=== PATIENT | male | born 1965 | race Caucasian/White ===

== ENCOUNTER 2020-03-15 13:24 | Emergency (ER) | payer OTHER, SELFPAY ==
[2020-03-15 13:30] VITALS: BP 171/103; PULSE 99; RESP 18; TEMP 36.9; O2SAT 95; BMI 50.2
--- NOTE | 2020-03-15 13:49 | HMH.EDUTC ---
[facility] [place] Impression: UTI (urinary tract infection) Qualifiers: Urinary tract infection type: site unspecified Hematuria presence: without hematuria Qualified Code(s): N39.0 - Urinary tract infection, site not specified Disposition: Home, Self-Care Condition on Discharge: Good Instructions: Urinary Tract Infection, DI for Urinary Tract Infection (UTI) Additional Instructions: Drink plenty of fluids. Take tylenol or ibuprofen for pain or fever. Take the medications as directed. Follow up with your regular doctor. GO TO THE ER FOR ANY WORSENING SYMPTOMS Prescriptions: Ciprofloxacin HCl [Ciprofloxacin 500mg Tab] 500 mg PO BID 14 Days #28 tab Transmission Status: Received by [facility] Referrals: Angeles Ribeiro APRN [Primary Care Provider] - Forms: Work/School Release Time of Disposition: 14:14 Medical Decision Making - Medical Records Medical records reviewed: No: I reviewed the patient's medical records. - Brenton Inquiry Pt receiving controlled substance: No Vital Signs: 03/15/20 13:30 03/15/20 14:23 Temperature 98.4 F 98.4 F Temperature Source Oral Pulse Rate 99 H Pulse Rate [Right Brachial] 99 H Respiratory Rate 18 18 Blood Pressure 171/103 H Blood Pressure [Right Arm] 171/103 H Blood Pressure Mean [Right Arm] 125 Blood Pressure Source [Right Arm] Automatic Cuff Blood Pressure Position [Right Arm] Sitting 02 Sat by Pulse Oximetry 95 Oxygen Delivery Method Room Air - Lab Data Lab results reviewed: Yes: I reviewed the patient's lab results. Lab Results 03/15/20 14:12: Urine Color Yellow, Urine Appearance Clear, Urine pH 5.0, Ur Specific [place] 1.025, Urine Protein Negative, Urine Glucose (UA) >=1000, Urine Ketones Trace, Urine Blood Negative, Urine Nitrate Negative, Urine Bilirubin Negative, Urine Urobilinogen 0.2, Ur Leukocyte Esterase Negative Orders (Tests/Meds): ED MEDICATIONS Discontinued Medications Generic Name Dose Route Start Last Admin Trade Name Freq PRN Reason Stop Dose Admin Levofloxacin 500 mg 03/15/20 14:14 03/15/20 14:20 Levofloxacin 500mg Tab PO 03/15/20 14:15 500 mg ONCE ONE Administration Protocol ORDERS Category Date Time Status Urine Culture Stat Micro 03/15/20 13:50 [place] [facility] [place] - General Stated complaint: Kidney issues Time Seen by Provider: 03/15/20 13:49 - History of Present Illness Provider Complaint: He states that for the past 3 days he has been having burning after he urinates. He has to hold his urine for kind of long periods of time at times due to his job. He thinks that he either has a uti or a prostate infection due to holding his urine for a long time last week. He denies any fever or chills. He does have some low back pain at times. - Related Data Previous Rx's Medication Instructions Recorded Ciprofloxacin HCl [Ciprofloxacin 500 mg PO BID 14 Days #28 tab 03/15/20 500mg Tab] Allergies Allergy/AdvReac Type Severity Reaction Status Date / Time No Known Allergies Allergy Verified 03/15/20 14:12 [facility] History - Hepatitis A Screen Attestation statement:: This patient has been screened for Hepatitis A risk factors. I have reviewed the patient's past medical history: Yes ROS Obtained: Yes All systems reviewed & no additional complaints - Constitutional Constitutional: Denies chills, Denies fever(s), Reports poor appetite, Reports malaise - Eyes Eyes: Denies eye discharge - Genitourinary Male Genitourinary: Reports as per HPI - Musculoskeletal Musculoskeletal: Reports back pain - Integumentary/Breasts Skin/Breast: Denies redness, Denies rash, Denies wounds Physical Exam - General General appearance: alert, in no apparent distress - Head Head exam: atraumatic, normocephalic, normal inspection - Eye Eye exam: Present: normal appearance, PERRL, EOMI - ENT ENT exam: Present: normal exam, normal oropharynx, mucous membr
[2020-03-15 14:23] VITALS: BP 171/103; PULSE 99; RESP 18; TEMP 36.9; O2SAT 95
[2020-03-15 20:06] LABS: Apearance,Urine Clear (Clear); Color,Urine Yellow (Yellow); Glucose,Urine (UA) >=1000 (Negative); Protein,Urine Negative (Negative); Specific Gravity, Urine 1.025 (1.005-1.030)
[2020-03-15 20:07] LABS: Bilirubin,Urine Negative (Negative); Blood, Urine Negative (Negative); Ketones,Urine TRACE (Negative); UTC Leukocyte Esterase,Urine Negative (Negative); UTC Nitrate,Urine Negative (Negative); Urobilinogen,Urine 0.2 EU/dl (0.2)
== END 2020-03-15 14:25 | disposition home or self-care (01) ==
PROVIDERS: Emergency Provider Nurse Practitioner Family; PCP Nurse Practitioner
DX: N30.00 Acute cystitis without hematuria (principal)
CPT/HCPCS: 81003; 87086; 99202; G0463

== ENCOUNTER 2020-03-18 08:50 | Emergency (ER) | payer OTHER, SELFPAY ==
[2020-03-18 08:52] VITALS: BP 154/88; PULSE 89; RESP 18; TEMP 36.8; O2SAT 97; BMI 3002.9
--- NOTE | 2020-03-18 08:56 | HMH.EDGENADL ---
ED Disposition Clinical Impression: Dysuria, Prostatic hypertrophy Disposition: Home, Self-Care Condition on Discharge: Good Instructions: DI for Urinary Tract Infection (UTI), DI for Urinary Tract Infection in Children Additional Instructions: Continue Cipro, take it until finished. Flomax and Pyridium as prescribed. Follow up with Dr. Ledesma, call for appointment. Prescriptions: Tamsulosin HCl [Flomax 0.4mg capsule] 0.4 mg PO HS #10 cap.er.24h Transmission Status: Received by [facility] Phenazopyridine HCl [Pyridium 200mg Tablet] 200 pow PO TID #6 tab Transmission Status: Received by [facility] Referrals: Angeles Ribeiro APRN [Primary Care Provider] - Mayo Ledesma MD [Staff Physician] - Forms: Work/School Release - Critical Care Critical Care Time: No Attestation: On , the high probability of a clinically significant, sudden or life threatening deterioration of the following system(s) required my full and direct attention, intervention and personal management. The time I documented below is in addition to time spent performing reported procedures but includes the following listed in this critical care notation. Medical Decision Making - Medical Records Medical records reviewed: Yes: I reviewed the patient's medical records. MR Comment: Reviewed urgent treatment center visit. Diagnosed with UTI. Urine analysis unremarkable except for glucose. Urine culture shows multiple organisms, probable contamination. - Brenton Inquiry Pt receiving controlled substance: No Vital Signs: 03/18/20 08:52 03/18/20 10:43 Temperature 98.2 F 98.4 F Temperature Source Oral Oral Pulse Rate 77 Pulse Rate [Left Radial] 89 Respiratory Rate 18 16 Blood Pressure 129/70 Blood Pressure [Left Arm] 154/88 H Blood Pressure Mean [Left Arm] 110 Blood Pressure Source Automatic Cuff Blood Pressure Source [Left Arm] Manual Cuff/ Doppler Blood Pressure Position Sitting Blood Pressure Position [Left Arm] Sitting 02 Sat by Pulse Oximetry 97 Oxygen Delivery Method Room Air Room Air - Lab Data Lab results reviewed: Yes: I reviewed the patient's lab results. Lab Results 03/18/20 09:09: Urine Color Yellow, Urine Appearance Clear, Urine pH 6.0, Ur Specific [place] 1.025, Urine Protein Negative, Urine Glucose (UA) 3+, Urine Ketones Negative, Urine Blood Negative, Urine Nitrate Negative, Urine Bilirubin Negative, Urine Urobilinogen 0.2, Ur Leukocyte Esterase Negative, Urine WBC 3-5, Ur Squamous Epith Cells 3-5 03/18/20 09:09: WBC 9.0, RBC 5.81, Hgb 17.1, Hct 52.4 H, MCV 90.3, MCH 29.5, MCHC 32.7, RDW 14.1, Plt Count 263, MPV 8.2, Neut % (Auto) 74.9, Lymph % (Auto) 15.4, [place] % (Auto) 5.2, Eos % (Auto) 4.1, Baso % (Auto) 0.5, Neut # (Auto) 6.8, Lymph # (Auto) 1.4, [place] # (Auto) 0.5, Eos # (Auto) 0.4, Baso # (Auto) 0.0 03/18/20 09:09: Sodium 139, Potassium 4.4, Chloride 103, Carbon Dioxide 28, Anion Gap 12.4, BUN 12, Creatinine 0.70, Estimated Creat Clear -116 L, Estimated GFR 118, Est GFR ( Amer) 143, Glucose 192 H, Calcium 10.2, Total Bilirubin 0.4, AST 22, ALT 21, Alkaline Phosphatase 96, Total Protein 8.7 H, Albumin 4.8, Globulin 3.9 H, Albumin/Globulin Ratio 1.2 Result diagrams: 03/18/20 09:09 03/18/20 09:09 - CT Data CT Scan: Abdomen, Pelvis Time Received: 10:[address] Reviewed: Yes: I have viewed the radiologist's interpretation Findings Narrative: PROCEDURE: CT ABDOMEN PELVIS WO CON CLINICAL INDICATION: urinary difficulty, r/o stone Pain when urinating COMPARISON: No exams were available for comparison TECHNIQUE: Axial images obtained with sagittal and coronal reformats. All CT scans at the facility use one or more dose reduction, viz: automated exposure control, ma/kV adjustment per patient size (including targeted exams where dose is matched to indication, i.e. head), or iterative reconstruction technique. FINDINGS: LOWER THORAX: No acute finding ABDOMEN & PEL
--- NOTE | 2020-03-18 09:15 | CT_ITS ---
PROCEDURE: CT ABDOMEN PELVIS WO CON CLINICAL INDICATION: urinary difficulty, r/o stone Pain when urinating COMPARISON: No exams were available for comparison TECHNIQUE: Axial images obtained with sagittal and coronal reformats. All CT scans at the facility use one or more dose reduction, viz: automated exposure control, ma/kV adjustment per patient size (including targeted exams where dose is matched to indication, i.e. head), or iterative reconstruction technique. FINDINGS: LOWER THORAX: No acute finding ABDOMEN & PELVIS: There is a small hiatal hernia. Mild nonspecific thickening noted of distal esophagus and GE junction with small amount of fluid in the distal esophagus. The liver, gallbladder, spleen, adrenal glands, and pancreas have unremarkable appearance. No renal or ureteral calculi are evident. No hydronephrosis. There is a mild amount of retained colonic feces. There is reported history of prior appendectomy. No intestinal obstruction or free air. There are few colonic diverticula but no evidence of diverticulitis. The prostate is enlarged at 6 x 4.8 cm. There is thickening of the urinary bladder nonspecific. No acute bony findings. IMPRESSION: 1. No acute finding. 2. Enlarged prostate. There is mild urinary bladder wall thickening which may be seen with incomplete distension, chronic outflow obstruction, or cystitis. 3. Hiatal hernia with mildly thickened distal esophagus Dictated by: Jimmie Mckeon MD 03/18/2020 10:05 Jimmie Mckeon MD in [place] 03/18/2020 10:05
[2020-03-18 09:58] LABS: Microscopic, Urine URINE MICROSCOPIC (MICROSCOPIC)
[2020-03-18 10:01] LABS: Appearance,Urine CLEAR (Clear); Bilirubin,Urine Negative (Negative); Blood, Urine Negative (Negative); Color,Urine YELLOW (Yellow); Glucose,Urine (UA) 3+ (Negative); Ketones,Urine Negative (Negative); Leukocyte Esterase,Urine Negative (Negative); Nitrate,Urine Negative (Negative); Protein,Urine Negative (Negative); Specific Gravity, Urine 1.025 (1.005-1.030); Urobilinogen,Urine 0.2 EU/dl (0.2)
[2020-03-18 10:03] LABS: Basophils % 0.5 % (0.1-2.0); Eosinophils # 0.4 K/mm3 (0.0-0.4); Eosinophils % 4.1 % (0.1-12.0); Hematocrit 52.4 % (42.0-52.0); Hemoglobin 17.1 g/dL (14.1-18.0); Lymphocytes # 1.4 K/mm3 (0.7-4.5); Lymphocytes % 15.4 % (10-50); Mean Corpuscular HGB Conc 32.7 g/dL (31.8-35.4); Mean Corpuscular Hemoglobin 29.5 pg (27.0-31.2); Mean Corpuscular Volume 90.3 fl (80-94); Mean Platelet Volume 8.2 fl (7.4-10.4); Monocytes # 0.5 K/mm3 (0.1-1.0); Monocytes % 5.2 % (1.7-9.3); Neutrophils # 6.8 K/mm3 (1.8-7.8); Neutrophils % 74.9 % (37.0-80.0); Platelet Count 263 K/mm3 (142-424); Red Blood Count 5.81 M/mm3 (4.60-6.20); Red Cell Distribution Width 14.1 % (11.5-17.5)
[2020-03-18 10:12] LABS: Chloride 103 mmol/L (98-107); Sodium 139 mmol/L (136-145)
[2020-03-18 10:13] LABS: Potassium 4.4 mmoL/L (3.5-5.1)
[2020-03-18 10:15] LABS: Alanine Aminotransferase 21 U/L (12-78); Albumin Level 4.8 g/dl (3.5-5.0); Albumin/Globulin Ratio 1.2 (1.1-1.8); Alkaline Phosphatase 96 U/L (38-126); Anion Gap 12.4 mEq/L (5-15); Aspartate Amino Transferase 22 U/L (17-59); Bilirubin,Total 0.4 mg/dl (0.2-1.3); Blood Urea Nitrogen 12 mg/dl (9-20); Carbon Dioxide 28 mmol/L (22.0-30.0); Estimated Glomerular Filt Rate 118 ml/min (>60); GFR (African American) 143 ML/MIN (>60); Globulin 3.9 g/dL (1.3-3.2); Total Protein,Serum 8.7 g/dl (6.3-8.2)
[2020-03-18 10:16] LABS: Calcium 10.2 mg/dl (8.4-10.2); Glucose 192 mg/dl (74-100)
[2020-03-18 10:43] VITALS: BP 129/70; PULSE 77; RESP 16; TEMP 36.9; O2SAT 98
[2020-03-21 04:20] LABS: Neisseria gonorrhoeae, NAA Negative (Negative)
== END 2020-03-18 10:45 | disposition home or self-care (01) ==
PROVIDERS: Emergency Provider Emergency Medicine; PCP Nurse Practitioner
DX: R30.0 Dysuria (principal); N40.1 Benign prostatic hyperplasia with lower urinary tract symptoms; E11.9 Type 2 diabetes mellitus without complications
CPT/HCPCS: 74176; 80053; 81001; 85025; 87491; 87591; 99283

== ENCOUNTER → 2021-09-02 14:02 | Outpatient (CLI) | payer OTHER, SELFPAY ==
[2021-09-02 13:17] LABS: Chloride 102 mmol/L (98-107); Potassium 4.9 mmoL/L (3.5-5.1); Sodium 135 mmol/L (136-145)
[2021-09-02 13:20] LABS: Anion Gap 10.9 mEq/L (5-15); Blood Urea Nitrogen 9 mg/dl (9-20); Calcium 9.8 mg/dl (8.4-10.2); Carbon Dioxide 27 mmol/L (22.0-30.0); Estimated Glomerular Filt Rate 140 ml/min (>60); GFR (African American) 170 ML/MIN (>60); Glucose 191 mg/dl (74-100)
== END ==
LOC: LAB.DROPOF 14:03
PROVIDERS: PCP Family Medicine; Visit Provider Family Medicine
DX: E11.9 Type 2 diabetes mellitus without complications (principal); Z79.84 Long term (current) use of oral hypoglycemic drugs
CPT/HCPCS: 80048

== ENCOUNTER → 2022-06-08 09:23 | Outpatient (CLI) | payer SELFPAY ==
[2022-06-08 18:36] LABS: Basophils # 0.1 K/mm3 (0-0.2); Basophils % 0.8 % (0.1-2.0); Eosinophils # 0.4 K/mm3 (0.0-0.4); Eosinophils % 4.5 % (0.1-12.0); Hematocrit 50.2 % (42.0-52.0); Hemoglobin 16.3 g/dL (14.1-18.0); Lymphocytes # 1.6 K/mm3 (0.7-4.5); Mean Corpuscular HGB Conc 32.6 g/dL (31.8-35.4); Mean Corpuscular Hemoglobin 29.1 pg (27.0-31.2); Mean Corpuscular Volume 89.4 fl (80-94); Mean Platelet Volume 9.2 fl (7.4-10.4); Monocytes # 0.5 K/mm3 (0.1-1.0); Monocytes % 5.6 % (1.7-9.3); Neutrophils # 6.6 K/mm3 (1.8-7.8); Platelet Count 254 K/mm3 (142-424); Red Blood Count 5.61 M/mm3 (4.60-6.20); Red Cell Distribution Width 13.5 % (11.5-17.5); White Blood Count 9.2 K/mm3 (4.8-10.8)
[2022-06-08 19:07] LABS: Alanine Aminotransferase 21 U/L (12-78); Albumin Level 4.2 g/dl (3.5-5.0); Albumin/Globulin Ratio 1.4 (1.1-1.8); Alkaline Phosphatase 105 U/L (38-126); Aspartate Amino Transferase 25 U/L (17-59); Bilirubin,Total 0.5 mg/dl (0.2-1.3); Blood Urea Nitrogen 10 mg/dl (9-20); Carbon Dioxide 24 mmol/L (22.0-30.0); Chloride 103 mmol/L (98-107); Chol/HDL Ratio 4.7 (1-3.5); Cholesterol 188 mg/dl (140-200); Estimated Glomerular Filt Rate 117 ml/min (>60); GFR (African American) 142 ML/MIN (>60); Globulin 2.9 g/dL (1.3-3.2); Glucose 114 mg/dl (74-100); HDL Cholesterol 40 mg/dl (40-60); Sodium 137 mmol/L (136-145); Total Protein,Serum 7.1 g/dl (6.3-8.2); Triglycerides 139 mg/dl (30-150); VLDL Cholesterol 28 mg/dL (0-40)
[2022-06-08 19:18] LABS: Direct LDL Cholesterol 119.69 mg/dL (100-129)
[2022-06-08 19:37] LABS: Thyroid Stimulating Hormone 1.69 uIU/mL (0.465-4.68)
[2022-06-08 19:52] LABS: Microalbumin < 6.000 mg/L (0-16.7)
[2022-06-08 20:02] LABS: Creatinine,Urine Random 76 mg/dL (Not Estab.)
== END ==
LOC: LAB.DROPOF 06-09 06:08
PROVIDERS: PCP Family Medicine; Visit Provider Family Medicine
DX: E11.9 Type 2 diabetes mellitus without complications (principal); I10 Essential (primary) hypertension; Z79.84 Long term (current) use of oral hypoglycemic drugs
CPT/HCPCS: 80053; 80061; 82043; 82570; 84443; 85025

== ENCOUNTER 2022-07-26 18:36 | Emergency (ER) | payer OTHER, SELFPAY ==
[2022-07-26 18:38] VITALS: BP 135/87; PULSE 106; RESP 19; TEMP 37.2; O2SAT 94; BMI 45.9
--- NOTE | 2022-07-26 20:29 | HMH.EDSKAF ---
Discharge Plan Disposition Patient Disposition: Home, Self-Care Prescriptions Prescriptions: New minocycline 100 mg Capsule 100 mg PO BID Qty: 20 0RF cephalexin [cephalexin] 500 mg capsule 500 mg PO TID Qty: 30 0RF No Action omeprazole 40 mg capsule,delayed release(DR/EC) 40 mg PO DAILY Qty: 30 2RF Synjardy XR 12.5-1,000 mg tablet, IR - ER, biphasic 24hr 1 tab PO DAILY Qty: 30 1RF Ozempic 1 mg/dose (4 mg/3 mL) pen injector 2 mg SQ WEEKLY Qty: 3 5RF atenolol 25 mg tablet 25 mg PO DAILY Qty: 90 1RF lisinopril 20 mg tablet 20 mg PO DAILY Qty: 90 1RF Referrals Follow up/Referrals: Ash Beebe MD [Primary Care Provider] - See instructions Clinical Impressions Clinical Impression: Cellulitis Instructions Patient Instructions: Cellulitis Discharge ED Provider: Kaushik (ED),Kalin Mak Skin/Abscess/FB HPI General Chief complaint: Skin/Abscess/Foreign Body Stated complaint: knot below stomach, painful Time Seen by Provider: 07/26/22 20:29 Mode of Arrival: Ambulatory Source of Information: Patient and Medical Record Limitations: No Limitations Description of Symptoms (Recalled from ER Triage Doc. by RN): 56 yo M presents to ED with c/o boil like spot on pubic area. pt reports that since monday he felt a spot on his pubic area but was unsure of what it was. today pt states that he and his attemped to drain the spot but were unsuccessful. History of Present Illness HPI narrative: over the last few days has area that was draining and has reddness and tender - pt is diabetic - no fever or chills complaint: abscess/boil Onset (ago): day(s) Location: genitals (suprapubic infection) Severity: moderate Associated symptoms: denies other symptoms Related Data Previous Rx's Medication Instructions Recorded empagliflozin 12.5 mg-metformin ER 1 tab PO DAILY #30 ea 11/29/21 1,000 mg tablet,extended rel 24 hr (Synjardy XR) semaglutide 1 mg/dose (4 mg/3 mL) 2 mg (1.5 mL) SQ WEEKLY #3 mL 04/06/22 subcutaneous pen injector (Ozempic) atenolol 25 mg tablet 25 mg PO DAILY #90 tabs 05/04/22 lisinopril 20 mg tablet 20 mg PO DAILY #90 tabs 05/04/22 omeprazole 40 mg capsule,delayed 40 mg PO DAILY #30 caps 06/08/22 release cephalexin 500 mg capsule 500 mg PO TID #30 caps 07/26/22 minocycline 100 mg capsule 100 mg PO BID #20 caps 07/26/22 Allergies Allergy/AdvReac Type Severity Reaction Status Date / Time No Known Allergies Allergy Verified 06/08/22 09:25 [facility] Disclaimer: The information contained in this section may have been updated after the patient was seen, as this information can be updated by other users. Medical History Diabetes mellitus HTN (hypertension) Morbid obesity Prostatic hypertrophy Family History Other Cancer Social History Smoking Status: Never smoker alcohol intake: never current occupational status: employed Travel in the last 8 weeks: Inside the [facility] ([place]) ROS Obtained: Yes All systems reviewed & no additional complaints except as documented Physical Exam General General appearance: alert Head Head exam: normocephalic Eye Eye exam: Present PERRL and EOMI ENT ENT exam: Present mucous membranes moist Neck Neck exam: Absent trachea midline Respiratory Respiratory exam: Absent respiratory distress Cardiovascular Cardiovascular exam: Present regular rate Abdominal Exam Abdominal exam: Present soft Extremities Exam Extremities exam: Present full ROM Neurological Exam Neurological exam: Present alert and CN II-XII intact Skin Skin exam: Present rash and other (reddness and area of infection w/o abscess or drainage - scrotal area nl ) Lymphatic Lymphatic Findings: no adenopathy Medical Decision Making Brenton Inquiry Pt receivi
[2022-07-26 20:43] VITALS: BP 119/78; PULSE 91; RESP 16; TEMP 36.9; O2SAT 94
== END 2022-07-26 20:45 | disposition home or self-care (01) ==
PROVIDERS: Emergency Provider Emergency Medicine; PCP Family Medicine
DX: L03.314 Cellulitis of groin (principal); E11.9 Type 2 diabetes mellitus without complications; E66.01 Morbid (severe) obesity due to excess calories; I10 Essential (primary) hypertension; N40.0 Benign prostatic hyperplasia without lower urinary tract symptoms
CPT/HCPCS: 99283; 99284

== ENCOUNTER 2023-12-11 09:30 | Outpatient (CLI) | payer MEDICARE, SELFPAY ==
[2023-12-11 18:40] LABS: Albumin Level 4.2 g/dl (3.5-5.0); Chloride 103 mmol/L (98-107); Potassium 4.5 mmoL/L (3.5-5.1); Sodium 136 mmol/L (136-145)
[2023-12-11 18:43] LABS: Alanine Aminotransferase 42 U/L (12-78); Albumin/Globulin Ratio 1.4 (1.1-1.8); Alkaline Phosphatase 101 U/L (38-126); Anion Gap 15.5 mEq/L (5-15); Aspartate Amino Transferase 36 U/L (17-59); Bilirubin,Total 0.7 mg/dl (0.2-1.3); Blood Urea Nitrogen 11 mg/dl (9-20); Carbon Dioxide 22 mmol/L (22.0-30.0); Cholesterol 198 mg/dl (140-200); Estimated Glomerular Filt Rate 139 ml/min (>60); GFR (African American) 168 ML/MIN (>60); Globulin 2.9 g/dL (1.3-3.2); Total Protein,Serum 7.1 g/dl (6.3-8.2); Triglycerides 165 mg/dl (30-150); VLDL Cholesterol 33 mg/dL (0-40)
[2023-12-11 18:44] LABS: Calcium 9.1 mg/dl (8.4-10.2); Chol/HDL Ratio 4.5 (1-3.5); Glucose 204 mg/dl (74-100); HDL Cholesterol 44 mg/dl (40-60)
[2023-12-11 18:55] LABS: Direct LDL Cholesterol 123.31 mg/dL (100-129)
[2023-12-11 19:35] LABS: Vitamin B12 453 pg/mL (239-931)
[2023-12-11 19:41] LABS: HIV (1&2) Antibody Rapid NONREACTIVE (NONREACTIVE)
[2023-12-11 19:54] LABS: Prostate Specific Ag Screen 2.9 ng/ml (0.0-4.0); Thyroid Stimulating Hormone 2.41 uIU/mL (0.465-4.68)
[2023-12-11 21:47] LABS: Creatinine,Urine Random 49 mg/dL (Not Estab.)
[2023-12-11 22:01] LABS: Microalbumin < 6.000 mg/L (0-16.7)
[2023-12-13 08:25] LABS: HCV Ab Non Reactive (Non Reactive)
== END 2023-12-11 23:59 | disposition home or self-care (01) ==
LOC: LAB.DROPOF 12-12 13:00
PROVIDERS: PCP Nurse Practitioner; Visit Provider Nurse Practitioner
DX: Z12.5 Encounter for screening for malignant neoplasm of prostate (principal); Z11.9 Encounter for screening for infectious and parasitic diseases, unspecified; I10 Essential (primary) hypertension; E11.9 Type 2 diabetes mellitus without complications; Z79.85 Long-term (current) use of injectable non-insulin antidiabetic drugs; N40.0 Benign prostatic hyperplasia without lower urinary tract symptoms; E78.5 Hyperlipidemia, unspecified; Z68.43 Body mass index [BMI] 50.0-59.9, adult; E66.01 Morbid (severe) obesity due to excess calories
CPT/HCPCS: 80053; 80061; 82043; 82570; 82607; 83036; 84443; 86803; 87389; G0103

== ENCOUNTER 2024-06-03 08:56 | Outpatient (CLI) | payer MEDICARE, SELFPAY ==
[2024-06-03 19:37] LABS: Basophils # 0.1 K/mm3 (0-0.2); Basophils % 0.6 % (0.1-2.0); Eosinophils # 0.4 Kmm3 (0.0-0.4); Eosinophils % 4.5 % (0.1-12.0); Hematocrit 49.6 % (42.0-52.0); Hemoglobin 15.8 g/dL (14.1-18.0); Lymphocytes # 1.5 K/mm3 (0.7-4.5); Lymphocytes % 17.1 % (10-50); Mean Corpuscular HGB Conc 31.9 g/dL (31.8-35.4); Mean Corpuscular Hemoglobin 29.5 pg (27.0-31.2); Mean Corpuscular Volume 92.7 fl (80-94); Mean Platelet Volume 10.3 fl (7.4-10.4); Monocytes # 0.7 K/mm3 (0.1-1.0); Monocytes % 8.1 % (1.7-9.3); Neutrophils % 69.2 % (37.0-80.0); Nucleated Red Blood Cells # 0 10^3/uL; Nucleated Red Blood Cells % 0 %; Platelet Count 238 K/mm3 (142-424); Red Blood Count 5.35 M/mm3 (4.60-6.20); Red Cell Distribution Width 13.3 % (11.5-17.5); Red Cell Distribution Width-SD 45.3 fL; White Blood Count 8.7 K/mm3 (4.8-10.8)
[2024-06-03 19:41] LABS: Creatinine,Urine Random 71 mg/dL (Not Estab.)
[2024-06-03 20:17] LABS: Albumin Level 4.3 g/dl (3.5-5.0); Chloride 105 mmol/L (98-107); Potassium 4.8 mmoL/L (3.5-5.1); Sodium 137 mmol/L (136-145)
[2024-06-03 20:19] LABS: Alanine Aminotransferase 25 U/L (12-78); Anion Gap 15.8 mEq/L (5-15); Aspartate Amino Transferase 23 U/L (17-59); Blood Urea Nitrogen 15 mg/dl (9-20); Carbon Dioxide 21 mmol/L (22.0-30.0); Estimated Glomerular Filt Rate 116 ml/min (>60); GFR (African American) 141 ML/MIN (>60)
[2024-06-03 20:20] LABS: Albumin/Globulin Ratio 1.5 (1.1-1.8); Alkaline Phosphatase 91 U/L (38-126); Bilirubin,Total 0.5 mg/dl (0.2-1.3); Calcium 9.5 mg/dl (8.4-10.2); Chol/HDL Ratio 4.1 (1-3.5); Cholesterol 171 mg/dl (140-200); Globulin 2.9 g/dL (1.3-3.2); Glucose 116 mg/dl (74-100); HDL Cholesterol 42 mg/dl (40-60); Total Protein,Serum 7.2 g/dl (6.3-8.2); Triglycerides 153 mg/dl (30-150); VLDL Cholesterol 31 mg/dL (0-40)
[2024-06-03 20:31] LABS: Direct LDL Cholesterol 98.14 mg/dL (100-129)
[2024-06-03 23:19] LABS: Hemoglobin A1C 6.3 % (4.0-6.0)
== END 2024-06-03 23:59 | disposition home or self-care (01) ==
LOC: LAB.DROPOF 06-04 12:55
PROVIDERS: PCP Nurse Practitioner; Visit Provider Nurse Practitioner
DX: I10 Essential (primary) hypertension (principal); E78.5 Hyperlipidemia, unspecified; E11.9 Type 2 diabetes mellitus without complications; Z79.84 Long term (current) use of oral hypoglycemic drugs; Z79.85 Long-term (current) use of injectable non-insulin antidiabetic drugs
CPT/HCPCS: 80053; 80061; 82043; 82570; 83036; 85025

== ENCOUNTER 2024-12-03 06:45 | Emergency (ER) | payer MEDICARE, SELFPAY ==
[2024-12-03 06:53] VITALS: BP 134/78; PULSE 84; RESP 17; TEMP 36.5; O2SAT 96; BMI 53.2
--- OUTSIDE RECORDS SUMMARY | 2024-12-03 06:54 | XMS_ITS | Clinical Summary ---
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 Role Phone Unavailable Primary Care Provider Unavailabl e Social History Tobacco Use Types Packs/Day Years Used Date Smoking Tobacco: Never Assessed Sex and Gender Information Value Date Recorded Sex Assigned at Not on file Legal Sex Male 10:47 PM EDT Gender Identity Not on file Sexual Orientation Not on file Plan of Treatment Health Maintenance Due Date Last Done Comments Annual Wellness Exam 1969 DTaP/TDaP/Td (1 - Tdap) 1985 Hepatitis B Vaccine (1 of 3 - 19+ 3-dose series) 1985 Cologuard 09/20/2011 Colon Cancer Screening 09/20/2011 Colonoscopy 09/20/2011 FIT 09/20/2011 Sigmoidoscopy 09/20/2011 Virtual Colonography 09/20/2011 Pneumococcal Vaccine 50+ (1 of 1 - PCV) 2016 Zoster (1 of 2) 2016 COVID-19 Vaccine (2024-2 6 season) 2024 Influenza Vaccine (#1) 2024 Meningococcal B Vaccine Aged Out No l onger eligible based on patient's age to complete this topic Insurance #[address] [place] [address] [facility]
--- NOTE | 2024-12-03 07:05 | ED_ITS ---
Discharge Plan Disposition Patient Disposition: Home, Self-Care Prescriptions Prescriptions: No Action atenolol 25 mg tablet See Rx Instructions .ROUTE .COMPLEX Qty: 90 1RF Dose Instruction: TAKE 1 TABLET BY MOUTH ONCE DAILY Rx Instructions: TAKE 1 TABLET BY MOUTH ONCE DAILY Synjardy XR 12.5-1,000 mg tablet, IR - ER, biphasic 24hr See Rx Instructions .ROUTE .COMPLEX Qty: 180 1RF Dose Instruction: TAKE 2 TABLETS BY MOUTH ONCE DAILY Rx Instructions: TAKE 2 TABLETS BY MOUTH ONCE DAILY lisinopril 20 mg tablet See Rx Instructions .ROUTE .COMPLEX Qty: 90 1RF Dose Instruction: TAKE 1 TABLET BY MOUTH ONCE DAILY Rx Instructions: TAKE 1 TABLET BY MOUTH ONCE DAILY Ozempic 2 mg/dose (8 mg/3 mL) pen injector 2 mg SQ WEEKLY Qty: 9 1RF Referrals Follow up/Referrals: Angeles Ribeiro APRN [Primary Care Provider, Family Practice] - See instructions Jason Radford MD [Staff Physician, Urology] - See instructions Activity Restrictions/Add. Instructions Additional Instructions/Restrictions: You do not have any evidence of a urinary tract infection and your difficulty urinating could be related to your enlarged prostate. I am referring you to Dr. Radford with urology. Call their office to schedule an appointment. If you develop any new or worsening symptoms, or if you become concerned for your health for any reason, return to the emergency department for evaluation. Clinical Impressions Clinical Impression: Dysuria Instructions Patient Instructions: DI for Urinary Tract Infection (UTI), DI for Urinary Tract Infection in Children Print Language Print Language: Greenlandic Discharge ED Provider: Skyler Henley Adult HPI General Chief complaint: Urogenital-Male Stated complaint: burning while uranating Time Seen by Provider: 12/03/24 06:50 Mode of Arrival: Ambulatory Description of Symptoms (Recalled from ER Triage Doc. by RN): Patient states he has had trouble urinating since last night. Denies pain states the flow is inconsistant and hard to begin urinating. Patient states he had this problem a few years ago and it was enlarged prostate. History of Present Illness HPI narrative: Chris Van is a 59y male with a history of hypertension and enlarged prostate who presents to the emergency department for complaints of pain and difficulty urinating this morning. Patient states that he has had a diagnosis of an enlarged prostate in the past and sometimes has difficulty urinating. He states that this morning, he was having difficulty urinating and was only able to produce dribbles. He states that he was having pain in both of his testicles at that time, which he has had before and was told that it was due to his prostate. He denies any burning with urination. He states that he was able to urinate prior to coming to the emergency department and has no pain at this time. He denies any abdominal pain, vomiting, diarrhea, fever. Related Data Previous Rx's ?Medication ?Instructions ?Recorded atenolol 25 mg tablet See Rx Instructions .Route 0 10/30/24 .COMPLEX #90 tabs empagliflozin 12.5 mg-metformin ER See Rx Instructions .Route 10/30/24 1,000 mg tablet,extended rel 24 hr .COMPLEX #180 tabs (Synjardy XR) lisinopril 20 mg tablet See Rx Instructions .Route 0 10/30/24 .COMPLEX #90 tabs semaglutide 2 mg/dose (8 mg/3 mL) 2 mg (0.75 mL) SQ WE EKLY #9 mL 10/30/24 subcutaneous pen injector (Ozempic) Allergies Allergy/AdvReac Type Severity Reaction Status Date / Time No Known Allergies Allergy Verified 06/03/24 08:17 [facility] Disclaimer: The information contained in this section may have been updated after the patient was seen, as this information can be updated by other users. Medical History (Updated 12/03/24 @ 07:10 by Skyler Henley MD) Hyperlipidemia Morbid obesity HTN (hypertension) Diabetes mellitus Prostatic hypertrophy Surgical History (Updated 06/03/24 @ 08:41 by Angeles Ribeiro APRN) History of colonoscopy (~2011) Family History Other Cancer Social History Smoking Status: Never smoker alcohol intake: never current occupational status: employed Travel in the last 8 weeks[place] Have you lived/traveled outside US in past 30 days?: No Contact w/someone who lives/traveled outside US past 30 days?: No Exposure to someone with infectious disease in past 14 days?: No Do you have a fever (greater than 100.4 F or 38 C)?: No Have you tested positive for COVID-19?: No Exposed to someone with COVID-19 in past 14 days?: No Do you have a sore throat?: No Do you have a cough?: No Do you have any weakness?: No Do you have any diarrhea?: No Are you experiencing any unusual bleeding?: No Do you have any muscle aches/pain?: No Do you have any abdominal pain?: No Are you experiencing loss of taste or smell?: No Other Medical History Have you received the Flu Vaccine for this season: No Have you received the Pneumonia Vaccine: No ROS Obtained: Yes Systems reviewed as appropriate & no additional complaints except as documented Physical Exam General General appearance: alert and in no apparent distress Head Head exam: atraumatic Eye Eye exam: Present normal appearance ENT ENT exam: Present normal external ear exam Neck Neck exam: Present full ROM Chest Chest inspection: Present symmetric chest wall rise Respiratory Respiratory exam: Present normal lung sounds bilaterally; Absent respiratory distress Cardiovascular Cardiovascular exam: Present regular rate and normal rhythm Abdominal Exam Abdominal exam: Present soft; Absent distention, tenderness, guarding or rigidity exam: Present normal inspection, deferred, normal testicular lie and other (No inguinal hernias, normal cremasteric reflex); Absent testicular tenderness, urethral discharge or scrotal swelling Extremities Exam Extremities exam: Present normal inspection Back Exam Back exam: Present normal inspection Neurological Exam Neurological exam: Present alert and oriented X3 Psychiatric Psychiatric exam: Present normal affect Skin Skin exam: Present warm and dry Medical Decision Making Medical Records Screening: Per USPSTF and CDC recommendations, given the prevalence of disease in our region, it is our hospital?s policy to screen for HIV and viral Hepatitis for all patients aged 18 and over and those with ongoing risk factors. Brenton Inquiry Pt receiving controlled substance: No Vital Signs: 12/03/24 06:53 12/03/24 07:30 Temperature 97.7 F Temperature Source Oral Pulse Rate 78 Pulse Rate [Left] 84 Respiratory Rate 17 Blood Pressure 102/67 L Blood Pressure [Right Arm] 134/78 Blood Pressure Mean [Right Arm] 96 02 Sat by Pulse Oximetry 96 95 Oxygen Delivery Method Room Air Room Air Lab Data Lab Results 12/03/24 06:49: Urine Color Yellow, Urine Appearance Clear, Urine pH 6.0, Ur Specific [place] 1.015, Urine Protein Negative, Urine Glucose (UA) 3+, Urine Ketones Negative, Urine Blood Trace-i, Urine Nitrate Negative, Urine Bilirubin Negative, Urine Urobilinogen 0.2, Ur Leukocyte Esterase Trace Orders (Tests/Meds): ORDERS Category Date Time Status UA [Urinalysis and Microscopic] Stat Lab 12/03/24 06:49 Results Medical Decision Narrative: Chris Van is a 59y male with a history of hypertension and enlarged prostate who presents to the emergency department for complaints of pain and difficulty urinating this morning. Patient states that he has had a diagnosis of an enlarged prostate in the past and sometimes has difficulty urinating. He states that this morning, he was having difficulty urinating and was only able to produce dribbles. He states that he was having pain in both of his testicles at that time, which he has had before and was told that it was due to his prostate. He denies any burning with urination. He states that he was able to urinate prior to coming to the emergency department and has no pain at this time. He denies any abdominal pain, vomiting, diarrhea, fever. On arrival, patient is hemodynamically stable, afebrile, breathing comfortably on room air with appropriate oxygen saturation. Physical exam, stated above, revealed an overall well-appearing male in no distress. He has no significant abdominal tenderness without distention or guarding. Genitourinary exam shows a normal testicular lie, no testicular tenderness. No inguinal hernias. Normal crema steric reflex. No urethral discharge. Differential diagnosis includes, but is not limited to: Prostatitis, enlarged prostate/BPH, urinary tract infection, among others. The most morbid conditions were considered and workup was based on these. Patient is currently asymptomatic and has no abdominal tenderness. CT imaging of the abdomen pelvis was considered, however is not indicated at this time as I do feel patient's pathology is likely related to his enlarged prostate. I have low concern for testicular torsion given patient's reassuring physical exam and lack of symptoms currently and do not feel that scrotal ultrasound would be of benefit at this time. Will check urinalysis to rule out infection. Patient does state that he was followed by urologist but does not remember who it was. Urine shows 3+ glucose but negative ketones, negative nitrates, negative leukocyte esterase. Trace blood and negative protein. No evidence of acute urinary tract infection. I do feel patient symptomatology is most likely related to his enlarged prostate. I will refer him to Dr. Radford for follow-up. Return precautions were given. All questions were answered. He demonstrated understanding and was in agreement this plan. He was then discharged from the emergency department in stable condition. Critical Care Critical Care Time Critical Care Time: No
[2024-12-03 07:08] LABS: Microscopic, Urine URINE MICROSCOPIC (MICROSCOPIC)
[2024-12-03 07:30] VITALS: BP 102/67; PULSE 78; O2SAT 95
[2024-12-03 07:35] LABS: Bilirubin,Urine Negative (Negative); Color,Urine YELLOW (Yellow); Glucose,Urine (UA) 3+ (Negative); Ketones,Urine Negative (Negative); Leukocyte Esterase,Urine TRACE (Negative); PH,Urine 6.0 (5.0-8.5); Protein,Urine Negative (Negative); Specific Gravity, Urine 1.015 (1.005-1.030); Urobilinogen,Urine 0.2 EU/dl (0.2)
[2024-12-03 07:54] LABS: Squamous Epithelial Cell,Urine Occasional #/hpf (0-5); WBC,Urine Occasional #/hpf (0-3)
[2024-12-03 07:55] VITALS: BP 102/67; PULSE 75; RESP 16; TEMP 36.7; O2SAT 95
[2024-12-03 07:55] LABS: Bacteria,Urine Trace /lpf; RBC,Urine Occasional #/hpf (0-3)
== END 2024-12-03 07:56 | disposition home or self-care (01) ==
PROVIDERS: Emergency Provider Student in an Organized Health Care Education/Training Program; PCP Nurse Practitioner
DX: R30.0 Dysuria (principal); N40.0 Benign prostatic hyperplasia without lower urinary tract symptoms
CPT/HCPCS: 81001; 99282; 99283

== ENCOUNTER 2024-12-09 09:49 | Outpatient (CLI) | payer OTHER, SELFPAY ==
--- NOTE | 2024-12-09 10:00 | US_ITS ---
FINAL REPORT CLINICAL HISTORY: .diff urinating-- prostate enlargment FINDINGS: RENAL ULTRASOUND Ultrasound images of the kidneys were obtained. The right kidney measures 12.8 cm in length. It is normal echogenicity. There is no hydronephrosis. The left kidney measures 12.9 cm in length. There is a hypoechoic exophytic 3.4 x 3.0 cm mass in the lower pole. There is no hydronephrosis. Incidental note is made of fatty infiltration of the liver. Gallstones are incidentally noted as well. IMPRESSION: Left renal mass as above. Recommend pre and post infusion CT for further evaluation. Incidental fatty liver. Incidental gallstones. Reviewed, Interpreted and Dictated by Ever Palma MD Transcribed by Colleen Cunningham Authenticated and . [facility]
--- OUTSIDE RECORDS SUMMARY | 2024-12-09 10:01 | XMS_ITS | Clinical Summary ---
Author Organization [facility] Address [address] [place] [address] [address] [place] [address] Phone Care Team Providers [employer] Name Role Phone Unavailable Primary Care Provider [...] patient's age to complete this topic Insurance #[address] [place] [id number] [facility]
[2024-12-09 11:10] LABS: Hemoglobin A1C 6.3 % (4.0-6.0)
[2024-12-10 08:14] LABS: PSA, Free 2.51 ng/mL
== END 2024-12-09 23:59 | disposition home or self-care (01) ==
PROVIDERS: PCP Nurse Practitioner; Visit Provider Urology
DX: N40.2 Nodular prostate without lower urinary tract symptoms (principal); R73.03 Prediabetes; R97.20 Elevated prostate specific antigen [PSA]
CPT/HCPCS: 36415; 76770; 83036; 84153; 84154

== ENCOUNTER 2024-12-16 12:26 | Outpatient (CLI) | payer OTHER, SELFPAY ==
--- OUTSIDE RECORDS SUMMARY | 2024-12-16 12:29 | XMS_ITS | Clinical Summary ---
Author Organization [facility] Address [address] [place] [address] Rd [address] entrance, [address] [place] [address] Phone Care Team Providers Care Developer Advisor Name Role Phone Unavailable Primary Care Provider [...] age to complete this topic Insurance #[address] [place] [address] [facility]
[2024-12-16 12:48] LABS: Blood Urea Nitrogen 19 mg/dl (9-20); Creatinine,Serum 1.00 mg/dl (0.66-1.25); Estimated Glomerular Filt Rate 77 ml/min (>60); GFR (African American) 93 ML/MIN (>60)
--- NOTE | 2024-12-16 13:00 | CT_ITS ---
FINAL REPORT TECHNIQUE: Pre-and postcontrast axial imaging of the abdomen and pelvis was obtained.This study was performed with techniques to keep radiation doses as low as reasonably achievable, (ALARA). Individualized dose reduction technique using automated exposure control or adjustment of mA and/or kV according to the patient's size were employed. CLINICAL HISTORY: Renal Mass COMPARISON: 12/09/2024, 03/18/2020 FINDINGS: The lung bases are clear. The liver is fatty infiltrated. No focal liver lesion. There are gallstones in the gallbladder. The spleen, and pancreas are unremarkable. There is a small left adrenal nodule, unchanged from 2020. There is a hypodense lesion in the posterior mid left kidney measuring 3.2 cm. This does not demonstrate enhancement and is consistent with a cyst. No other renal mass is identified. On precontrast imaging, no renal stones are identified. There is no hydronephrosis. There is a small hiatal hernia. No small bowel obstruction is seen. There is no lymphadenopathy or ascites. The pelvic organs and pelvic portions of the GI tract are within normal limits. Appendix is not visualized. There are no secondary signs of appendicitis. Prostate is enlarged. Urinary bladder is unremarkable. There is no lymphadenopathy or ascites. No acute osseous abnormalities identified. IMPRESSION: Left renal cyst. Gallstones. Fatty infiltration of the liver. Reviewed, Interpreted and Dictated by Kayla Robin MD Transcribed by Haydee Meadows Authenticated and [facility]
[2024-12-16] MEDS: SODIUM CHLORIDE 0.9% 10ML SYR (RAD ONLY) 10 ML IV (13:24)
[2024-12-16] MEDS: IOPAMIDOL-370 (76%);100ML BOTTLE 75 ML IV (13:24)
== END 2024-12-16 23:59 | disposition home or self-care (01) ==
LOC: RAD 12:26
PROVIDERS: PCP Nurse Practitioner; Visit Provider Urology
DX: N28.1 Cyst of kidney, acquired (principal); K80.20 Calculus of gallbladder without cholecystitis without obstruction; K76.0 Fatty (change of) liver, not elsewhere classified; N28.89 Other specified disorders of kidney and ureter
CPT/HCPCS: 36415; 74178; 82565; 84520; Q9967